=== PATIENT | female | born 1995 | race Two or more races ===

== ENCOUNTER 2018-10-01 20:03 | Observation (INO) | payer SELFPAY ==
[~2018-10-01] VITALS: Ht 144.8 cm; Wt 96.6 kg
[2018-10-01] MEDS ORDERED: IV RINGERS,LACTATED 1000ML 1,000 ML IV SCH (20:04)
[2018-10-01 20:40] LABS: BILIRUBIN,URINE NEGATIVE (NEG); CLARITY,URINE CLEAR; COLOR,URINE YELLOW; NITRITE,URINE NEGATIVE (NEG); PH,URINE 6.5; PROTEIN,URINE NEGATIVE (NEG-TRACE)
[2018-10-01 20:47] LABS: BARBITURATES NEG (NEG); BENZODIAZEPINES NEG (NEG); CANNABINOIDS NEG (NEG); COCAINE NEG (NEG); METHADONE NEG (NEG); OPIATES NEG (NEG); PHENCYCLIDINE NEG (NEG)
[2018-10-01 20:53] LABS: AMPHETAMINE/METHAMPHETAMINE NEG (NEG); BACTERIA,URINE MODERATE /HPF (0-FEW); RBC,URINE 0 /HPF (0-2); SQUAMOUS EPITHELIAL CELL,UR MOD /LPF
[2018-10-01 21:28] LABS: BASO % 0 % (0-3); EOS % 1 % (0-3); HEMATOCRIT 35.8 % (36.0-47.0); HEMOGLOBIN 12.6 g/dL (12.0-15.5); LYMPH # 1.7 x10^3/uL (1.0-4.8); LYMPH % 26 % (24-48); MEAN CORPUSCULAR HEMOGLOBIN 33 pg (25-35); MEAN CORPUSCULAR HGB CONC 35 g/dL (31-37); MEAN CORPUSCULAR VOLUME 95 fL (79-100); MONO # 0.4 x10^3/uL (0.0-1.1); MONO % 7 % (0-9); NEUT # 4.2 x10^3uL (1.8-7.7); NEUT % 66 % (31-73); PLATELET COUNT 210 x10^3/uL (140-400); RED BLOOD COUNT 3.79 x10^6/uL (3.50-5.40); RED CELL DISTRIBUTION WIDTH 14.2 % (11.5-14.5); WHITE BLOOD COUNT 6.4 x10^3/uL (4.0-11.0)
--- NOTE | 2018-10-01 22:02 | RAD ---
OB LIMITED History: care in [place] Comparison: None. Findings: Multiple sonographic images of the uterus are submitted. There is a single intrauterine fetus in cephalic presentation. There is primarily left lateral and anterior placenta. Amniotic fluid volume is within normal limits, estimated ROXIE of 10.9 cm. urinary bladder and stomach are visualized. 2 kidneys were visualized. There is no obvious abnormality demonstrated of the visualized spine. Four-chamber view of the heart is limited due to shadowing although there are believed to be 4 chambers present. There is demonstrable cardiac activity 137 bpm. 2 upper and lower extremities were visualized. There is reportedly a three-vessel cord although poorly demonstrated on submitted image. There is reportedly a nuchal cord present although difficult to demonstrate on still image. Maternal adnexal regions are not demonstrated. Biometry data are as follows: Biparietal diameter 9.3 cm corresponds with 37 weeks 6 days Head circumference 34.02 cm corresponds with 39 weeks 1 day Abdominal circumference 34.21 cm corresponds with 38 weeks 1 day Femur length 7.13 cm corresponds with 36 weeks 4 days Adjusted ultrasound age 38 weeks 0 days with estimated delivery date of 10/15/2018 LMP age 38 weeks 5 days with estimated delivery date of 10/10/2018 HC/AC ratio within normal limits 0.99 Estimated weight 3319 g +/- 491 g corresponding with the 48 percentile Impression: 1. There is a single viable intrauterine fetus in cephalic presentation, adjusted ultrasound age 38 weeks 0 days with estimated delivery date of 10/15/2018. There is nuchal cord. Electronically signed by: Ananth Marie MD (10/01/2018 9:59 PM) [facility]
== END 2018-10-01 22:19 | disposition home or self-care (01) ==
LOC: 3 SO LND 20:03
PROVIDERS: ADMIT Obstetrics & Gynecology; ATTEND Obstetrics & Gynecology
DX: O36.8130 Decreased fetal movements, third trimester, not applicable or unspecified (principal); Z3A.38 38 weeks gestation of pregnancy
CPT/HCPCS: 36415; 76815; 80307; 81001; 85025; 86592; 86762; 86850; 86900; 86901; 87086; 87340; 87653; G0378; G0379

== ENCOUNTER 2018-10-03 11:54 | Observation (INO) | payer SELFPAY ==
[~2018-10-03] VITALS: Ht 147.3 cm; Wt 94.3 kg
== END 2018-10-03 16:00 | disposition home or self-care (01) ==
LOC: 3 SO LND 11:54
PROVIDERS: ADMIT Obstetrics & Gynecology; ATTEND Obstetrics & Gynecology
DX: O46.93 Antepartum hemorrhage, unspecified, third trimester (principal); O99.89 Other specified diseases and conditions complicating pregnancy, childbirth and the puerperium; M54.9 Dorsalgia, unspecified; O26.893 Other specified pregnancy related conditions, third trimester; R10.9 Unspecified abdominal pain; Z3A.38 38 weeks gestation of pregnancy
CPT/HCPCS: G0378; G0379